=== PATIENT | male | born 1965 | race Caucasian/White ===

== ENCOUNTER 2016-11-09 06:14 | Emergency (ER) | payer BC ==
[2016-11-09 06:23] VITALS: BP 146/90; BMI 21.2
--- NOTE | 2016-11-09 06:44 | DR.GENAD ---
HPI - PCP Primary Care Physician: NFD - Complaint/Symptoms Chief Complaint Doctors Comments: Describes stool as black not red. drinking a lot of peptobismo. Chief Complaint:: EPIGASTRIC PAIN FOR LAST TWO DAYS; LOOSE BLOODY STOOLS STARTED YESTERDAY; 2 BLOODY BOWEL MOVEMENTS IN LAST; BLOOD IS DARK AND APPROXIMATELY 1 HANDFUL WITH EACH EPISODE; POOR APPETITE; PATIENT REPORTS HE CONSUMES 4-6 CANS OF BEER PER DAY; LAST BEER WAS 2 DAYS AGO. Self Treatment fo Chief Complaint: PEPTO BISMOL - Nurses notes reviewed Nurses Notes Review: Yes - Source History Provided: Patient - Mode of Arrival Mode of Arrival: Ambulatory - Timing Onset of Chief Complaint: 11/07/16 Came on: Suddenly - Duration Duration: Intermittent How lon Duration: Days - Location Location: abdomen - Severity Severity: Mild - Modifying Factors Improves:: pepto bismo - Associated Signs and Symptoms Associated Signs and Symptoms: sore stomach <CARLI MACDONALD - Last Filed: 11/09/16 08:19> PMH - PMH Past Medical History: No Past Surgical History: No - Family History History of Family Medical Conditions: No - Social History Type of Tobacco Use: None Alcohol Use: DAILY Lives With: Spouse Lives Where: Home - infectious screening In the last 2 months have you had wt loss of >10#?: NO Have you had fever, night sweats or hemotysis?: No Have you traveled outside the country in the last 6 months?: No Isolation: Standard <CARLI MACDONALD - Last Filed: 11/09/16 08:19> ROS - Review of Systems Constitutional: No Symptoms Reported Eyes: No Symptoms Reported ENTM: No Symptoms Reported Respiratoy: No Symptoms Reported Cardiovascular: No Symptoms Reported Gastrointestinal/Abdominal: Abdominal Pain, Diarrhea Genitourinary: No Symptoms Reported Neurological: No Symptoms Reported Musculoskeletal: No Symptoms Reported Integumentary: No Symptoms Reported Hematologic/Lymphatic: No Symptoms Reported Endocrine: No Symptoms Reported Psychiatric: Depression <CARLI MACDONALD Last Filed: 11/09/16 08:19> PE - General Limitations: No Limitations General Appearance: Alert, In No Apparent Distress - Head Head Exam: Normal Inspection - Eyes Eye exam: Normal Appearance, EOMI. negative: Scleral Icterus, Conjunctival Injection - ENT ENT Exam: Normal Exam External Ear Exam: Normal External Inspection - Neck Neck Exam: Normal Inspection, Full ROM, Trachea Midline - Chest Chest Inspection: Normal Inspection - Respiratory Respiratory Exam: Normal Lung Sounds Bilat. negative: Accessory Muscle Use, Respiratory Distress Respiratory Exam: Bilateral Clear to Auscultation - Cardiovascular Cardiovascular Exam: Regular Rate - Abdominal Exam Abdominal Exam: Normal Inspection, Normal Bowel Sounds, Soft. negative: Distention, Tenderness, Guarding Abdominal Tenderness: Epigastrium - Extremities Extremities Exam: Normal Inspection, Full ROM - Back Back Exam: Normal Inspection - Neurologic Neurological Exam: Alert, Oriented X3, CN II-XII Intact - Psychiatric Psychiatric Exam: Depressed - Skin Skin Exam: Intact, Normal Color <CARLI MCADONALD - Last Filed: 11/09/16 08:19> <GORDON PARRY - Last Filed: 11/10/16 09:01> - Vital Signs Vitals: Temperature 98.5 F Pulse Rate 86 Respiratory Rate 20 Blood Pressure 146/90 O2 Sat by Pulse Oximetry 99 - Other Exam Other Exam: black stool present no hemorroids (CARLI MACDONALD) MDM - Additional Information Additional Information Obtained From: Family - Differential Diagnosis Differential Diagnosis: ABDOMINAL PAIN, BACK APIN <GORDON PARRY - Last Filed: 11/10/16 09:01> Course - Treatment Treatment: Hemoccult negative, black stool probably from pepto bismo. Due to elevated bilirubin will do salicylate level. <CARLI MACDONALD - Last Filed: 11/09/16 08:19> - Education/Counseling Education/Counseling: Patient, Education Educated On: Diagnosis, Needs for Follow Up <GORDON PARRY - Last Filed: 11/10/16 09:01> ROR - Labs Reviewed Result Diagrams: 11/09/16 07:05 11/09/16 07:05 - XRAY XRAY Interpreted by: Radiologist XRAY Findings: AAS: normal CT Abdo/pelvis- pending <CARLI MACDONALD - Last Filed: 11/09/16 08:19> - Labs Reviewed Laboratory Results Reviewed?: Yes Result Diagrams: 11/09/16 07:05 11/09/16 07:05 <GORDON PARRY - Last Filed: 11/10/16 09:01> - Labs Reviewed Laboratory: WBC 6.4 X10^3/uL (3.6-10.0) 11/09/16 07:05 RBC 5.02 X10^6/uL (4.7-6.0) 11/09/16 07:05 Hgb 16.0 g/dL (13.5-18.0) 11/09/16 07:05 Hct 46.7 % (42.0-54.0) 11/09/16 07:05 MCV 93.0 fL (80.0-100.0) 11/09/16 07:05 MCH 31.8 pg (27.0-34.0) 11/09/16 07:05 MCHC 34.2 g/dL (33.0-35.0) 11/09/16 07:05 RDW 12.9 % (11.6-16.5) 11/09/16 07:05 Plt Count 260 X10^3/uL (150.0-450.0) 11/09/16 07:05 MPV 8.4 fL (7.4-11.0) 11/09/16 07:05 Neut % 65.4 % (42.0-75.0) 11/09/16 07:05 Lymph % 24.9 % (21.0-51.0) 11/09/16 07:05 Lamb % 7.8 % (0.0-13.0) 11/09/16 07:05 Eos % 1.1 % (0.9-2.9) 11/09/16 07:05 Baso % 0.8 % (0.2-1.0) 11/09/16 07:05 Neut # 4.2 x10^3/uL (2.2-4.8) 11/09/16 07:05 Lymph # 1.6 X10^3/uL (1.3-2.9) 11/09/16 07:05 Lamb # 0.5 x10^3/uL (0.3-0.8) 11/09/16 07:05 Eos # 0.1 x10^3/uL (0.0-0.2) 11/09/16 07:05 Baso # 0.1 X10^3/uL (0.0-0.1) 11/09/16 07:05 Absolute Nucleated RBC 0.0 /100WBC 11/09/16 07:05 Sodium 140 mmol/L (136-145) 11/09/16 07:05 Corrected Sodium TNP 11/09/16 07:05 Potassium 3.7 mmol/L (3.5-5.1) 11/09/16 07:05 Chloride 102 mmol/L (98-107) 11/09/16 07:05 Carbon Dioxide 30.1 mmol/L (21-32) 11/09/16 07:05 BUN 18 mg/dL (7-18) 11/09/16 07:05 Creatinine 0.92 mg/dL (0.70-1.30) 11/09/16 07:05 Est GFR (MDRD) Af Amer > 60 (>60) 11/09/16 07:05 Est GFR (MDRD) Non-Af > 60 (>60) 11/09/16 07:05 Glucose 106 mg/dL (65-99) H 11/09/16 07:05 Calcium 9.5 mg/dL (8.5-10.1) 11/09/16 07:05 Corrected Calcium TNP 11/09/16 07:05 Total Bilirubin 3.70 mg/dL (0.2-1.0) H 11/09/16 07:05 AST 28 Units/L (15-37) 11/09/16 07:05 ALT 30 Units/L (12-78) 11/09/16 07:05 Alkaline Phosphatase 49 Units/L (46-116) 11/09/16 07:05 Total Protein 8.4 g/dL (6.4-8.2) H 11/09/16 07:05 Albumin 4.6 g/dL (3.4-5.0) 11/09/16 07:05 Globulin 3.8 g/dL (2.5-4.5) 11/09/16 07:05 Albumin/Globulin Ratio 1.2 Ratio (1.1-2.1) 11/09/16 07:05 Amylase 53 Units/L (25-115) 11/09/16 07:05 Lipase 89 Units/L (73-393) 11/09/16 07:05 Specimen Type Clean catch urine 11/09/16 12:28 Urine Color Yellow (YELLOW) 11/09/16 12:28 Urine Appearance Slightly hazy (CLEAR) 11/09/16 12:28 Urine pH 6.0 (5.0 - 8.0) 11/09/16 12:28 Ur Specific [place] 1.025 (1.000-1.030) 11/09/16 12:28 Urine Protein 1+ (NEGATIVE) 11/09/16 12:28 Urine Glucose (UA) Negative (NEGATIVE) 11/09/16 12:28 Urine Ketones 4+ (NEGATIVE) 11/09/16 12:28 Urine Occult Blood 2+ (NEGATIVE) 11/09/16 12:28 Urine Nitrite Negative (NEGATIVE) 11/09/16 12:28 Urine Bilirubin Negative (NEGATIVE) 11/09/16 12:28 Urine Urobilinogen Normal (NORMAL) 11/09/16 12:28 Ur Leukocyte Esterase Negative (NEGATIVE) 11/09/16 12:28 Urine RBC 0-3 /HPF (NEGATIVE) 11/09/16 12:28 Urine WBC 0-1 /HPF (NEGATIVE) 11/09/16 12:28 Ur Squamous Epith Cells Rare /HPF (NEGATIVE) 11/09/16 12:28 Urine Bacteria Trace /HPF (NEGATIVE) 11/09/16 12:28 Urine Mucus Many /HPF (NEGATIVE) 11/09/16 12:28 Ur Culture Indicated? No/not indicated 11/09/16 12:28 Stool Description Fob tube 11/09/16 07:04 Stl Occult Blood (IFOB) Negative (NEGATIVE) 11/09/16 07:04 Salicylates < 2.8 mg/dL (2.8-20) L 11/09/16 07:05 Acetaminophen < 0.0 ug/mL (10-30) L 11/09/16 07:05 <CARLI MACDONALD - Last Filed: 11/09/16 08:19> <GORDON PARRY - Last Filed: 11/10/16 09:01> - Diagnosis Discharge Problem: Drug toxicity Abdominal pain Qualifiers: Abdominal location: upper abdomen, unspecified Qualified Code(s): R10.10 - Upper abdominal pain, unspecified - Discharge Plan Disposition: 01 HOME, SELF-CARE Condition: Stable Prescriptions: Ketorolac Tromethamine [Toradol Tab] 15 mg PO Q8H PRN #12 tab PRN Reason: Pain Ranitidine HCl [ZANTAC TAB 150 MG *] 150 mg PO BID #60 tab - Follow ups/Referrals Follow ups/Referrals: NFD,None [Primary Care Provider] - 2 days Tesfaye Kamara [STAFF PHYSICIAN] - 2 days - Instructions Instructions: Abdominal Pain, Adult, [id number] Additional Instructions: RETURN TO ED IF WORSE.
[2016-11-09 07:11] LABS: BASOPHILS # (AUTO) 0.1 X10^3/uL (0.0-0.1); BASOPHILS % (AUTO) 0.8 % (0.2-1.0); EOSINOPHILS # (AUTO) 0.1 x10^3/uL (0.0-0.2); EOSINOPHILS % (AUTO) 1.1 % (0.9-2.9); HEMATOCRIT 46.7 % (42.0-54.0); LYMPHOCYTES # (AUTO) 1.6 X10^3/uL (1.3-2.9); LYMPHOCYTES % (AUTO) 24.9 % (21.0-51.0); MEAN CORPUSCULAR HEMOGLOBIN 31.8 pg (27.0-34.0); MEAN CORPUSCULAR HGB CONC 34.2 g/dL (33.0-35.0); MEAN PLATELET VOLUME 8.4 fL (7.4-11.0); MONOCYTES # (AUTO) 0.5 x10^3/uL (0.3-0.8); MONOCYTES % (AUTO) 7.8 % (0.0-13.0); NEUTROPHILS # (AUTO) 4.2 x10^3/uL (2.2-4.8); NEUTROPHILS % (AUTO) 65.4 % (42.0-75.0); PLATELET COUNT 260 X10^3/uL (150.0-450.0); RED BLOOD COUNT 5.02 X10^6/uL (4.7-6.0); RED CELL DISTRIBUTION WIDTH 12.9 % (11.6-16.5); WHITE BLOOD COUNT 6.4 X10^3/uL (3.6-10.0)
[2016-11-09 07:26] LABS: ALANINE AMINOTRANSFERASE 30 Units/L (12-78); ALBUMIN 4.6 g/dL (3.4-5.0); ALKALINE PHOSPHATASE 49 Units/L (46-116); AMYLASE 53 Units/L (25-115); ASPARTATE AMINO TRANSFERASE 28 Units/L (15-37); BLOOD UREA NITROGEN 18 mg/dL (7-18); CALCIUM 9.5 mg/dL (8.5-10.1); CARBON DIOXIDE 30.1 mmol/L (21-32); CHLORIDE 102 mmol/L (98-107); CREATININE 0.92 mg/dL (0.70-1.30); GLUCOSE 106 mg/dL (65-99); LIPASE 89 Units/L (73-393); SODIUM 140 mmol/L (136-145); TOTAL PROTEIN 8.4 g/dL (6.4-8.2); eGFR BLACK RACES > 60 (>60); eGFR NON BLACK RACES > 60 (>60)
--- NOTE | 2016-11-09 08:26 | RAD ---
HISTORY: Abdominal pain. Study: Acute abdominal series Comparison: None. Findings: The trachea is midline. The cardiac silhouette is unremarkable. The lungs are clear without focal i nfiltrate or effusion. The bony thorax is unremarkable. Flat plate and upright evaluation of the abdomen demonstrates a nonspecific/nonobstructive bowel gas pattern with air and stool to the level of the rectum. No obvious free air. No pathological soft tis abdirahman mass or calcification can be observed. The bony structures are grossly intact. IMPRESSION: 1. No acute cardiopulmonary disease. 2. No evidence for acute abdominal pathology identified. Reported By:
[2016-11-09 08:28] LABS: ACETAMINOPHEN < 0.0 ug/mL (10-30); SALICYLATE < 2.8 mg/dL (2.8-20)
[2016-11-09] MEDS ORDERED: NS 1000 ML 1,000 ML IV ONE (09:47)
[2016-11-09] MEDS ORDERED: NS 1000 ML 1,000 ML ONE (09:52)
--- NOTE | 2016-11-09 11:42 | CT ---
HISTORY: Abdominal pain. Study: CT abdomen and pelvis without contrast Comparison: Acute abdominal series dated same day. Technique: Multiple axial images of the abdomen and pelvis were obtained from the lung bases to the pubic symphy sis without the administration of IV contrast. Dose reduction techniques including Automated Exposur e Control (AEC) and adjustment of mA and kV were utilized. Findings: Limited study secondary to lack of IV and oral contrast. 2 mm pleural-based pulmonary nodule along the right major fissure (series 3, image 1). Pleural-based 4 mm right lower lobe pulmonary nodule versus nodular density (series 3, image 10). Otherwise, the vi sualized portions of the lung bases are unremarkable. The liver, spleen, pancreas, kidneys, and adre nal glands are unremarkable in their CT appearance. The gallbladder is unremarkable in its CT appeara nce. No significant mesenteric lymphadenopathy or stranding can be observed. No free fluid or free air is seen within the abdomen. Limited evaluation of the large and small bowel secondary to lack of oral contrast and collapse. The large and small bowel otherwise appear normal. There is a fecalith within the distal appendix that otherwise appears normal. The urinary bladder is grossly unremarkable . 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 R emaining osseous structures appear intact. IMPRESSION: 1. No CT evidence of acute abdominal/pelvic pathology. 2. Pulmonary nodules within the bilateral lower lobes as above. Recommend dedicated CT of the chest o n outpatient basis for further characterization. 3. Other chronic findings as above. Reported By:
[2016-11-09 12:50] LABS: BILIRUBIN,URINE NEGATIVE (NEGATIVE); BLOOD/HEMOGLOBIN,URINE 2+ (NEGATIVE); GLUCOSE, URINE NEGATIVE (NEGATIVE); KETONES,URINE 4+ (NEGATIVE); LEUKOCYTE ESTERASE ,URINE NEGATIVE (NEGATIVE); NITRITES,URINE NEGATIVE (NEGATIVE); PROTEIN,URINE 1+ (NEGATIVE); UROBILINOGEN,URINE NORMAL (NORMAL)
[2016-11-09 14:12] LABS: APPEARANCE,URINE SLIGHTLY HAZY (CLEAR); BACTERIA,URINE TRACE /HPF (NEGATIVE); COLOR,URINE YELLOW (YELLOW); MUCUS,URINE MANY /HPF (NEGATIVE); RBC,URINE 0-3 /HPF (NEGATIVE); SQUAMOUS EPITHELIAL CELL,UR RARE /HPF (NEGATIVE)
== END 2016-11-09 12:21 | disposition home or self-care (01) ==
LOC: ER 06:14
DX: R10.13 Epigastric pain (principal); T50.901A Poisoning by unspecified drugs, medicaments and biological substances, accidental (unintentional), initial encounter
CPT/HCPCS: 36415; 74022; 74176; 80053; 80307; 81001; 82150; 82270; 83690; 85025; 96365; 96374; 99283; A4216; A4222; G6038; G6039